=== PATIENT | female | born 1990 | race Caucasian/White ===

== ENCOUNTER 2016-08-14 02:54 | Emergency (ER) | payer SELFPAY ==
[~2016-08-14] VITALS: Ht 170.2 cm; Wt 71.3 kg
[~2016-08-14 02:54] MED LIST: SULF-154 PO
[2016-08-14 03:02] VITALS: BP 138/97; PULSE 108; RESP 16; TEMP 97.8; O2SAT 99
[2016-08-14] MEDS ORDERED: MULTTAB67 PO (03:27)
[2016-08-14] MEDS ORDERED: OXYC30TA62 PO (03:27)
[2016-08-14] MEDS ORDERED: CEPH-459 PO (03:27)
[2016-08-14 04:03] LABS: AUTOMATED NEUTROPHIL # 6.9 TH/MM3 (1.8-7.7); BASOPHIL % 0.4 % (0.0-2.0); EOSINOPHIL # 0.6 TH/MM3 (0-0.4); EOSINOPHIL % 6.4 % (0.0-4.0); HEMATOCRIT 39.5 % (35.0-46.0); LYMPH % 17.5 % (9.0-44.0); LYMPHOCYTE # 1.7 TH/MM3 (1.0-4.8); MEAN CELL VOLUME 92.9 FL (80.0-100.0); MEAN CORPUSCULAR HEMOGLOBIN 31.1 PG (27.0-34.0); MEAN CORPUSCULAR HGB CONC 33.5 % (32.0-36.0); MONO % 3.9 % (0.0-8.0); NEUT % 71.8 % (16.0-70.0); PLATELET COUNT 258 TH/MM3 (150-450); RED BLOOD COUNT 4.26 MIL/MM3 (4.00-5.30); RED CELL DISTRIBUTION WIDTH 12.6 % (11.6-17.2); WHITE BLOOD COUNT 9.6 TH/MM3 (4.0-11.0)
[2016-08-14 04:05] LABS: BLOOD, URINE NEG (NEG); GLUCOSE,URINE NEG (NEG); KETONE, URINE TRACE mg/dL (NEG); NITRITE,URINE NEG (NEG); PH, URINE 5.5 (5.0-8.5)
[2016-08-14 04:16] LABS: CHLORIDE 105 MEQ/L (98-107); SODIUM (NA) 140 MEQ/L (136-145)
[2016-08-14 04:19] LABS: ANION GAP 6 MEQ/L (5-15); BICARBONATE 29.5 MEQ/L (21.0-32.0); BLOOD UREA NITROGEN 11 MG/DL (7-18)
[2016-08-14 04:21] LABS: POTASSIUM 3.8 MEQ/L (3.5-5.1)
[2016-08-14 04:22] LABS: ALT (GPT) 65 U/L (10-53); AST (GOT) 60 U/L (15-37); GLOMERULAR FILTRATION RATE 85 ML/MIN (>89); HEMO FLAGS DIFF FINAL
[2016-08-14 04:23] LABS: AMPHETAMINE, URINE POS (NEG)
[2016-08-14 04:24] LABS: TOTAL BILIRUBIN ADULT 0.5 MG/DL (0.2-1.0)
[2016-08-14 04:25] LABS: ALKALINE PHOSPHATASE 74 U/L (45-117); BARBITURATES, URINE NEG (NEG)
[2016-08-14 04:26] LABS: MUCUS URINE MOD /lpf (OCC); URINE COLOR AMBER (YELLW/STRAW)
[2016-08-14 04:27] LABS: BACTERIA, URINE OCC /hpf
[2016-08-14 04:29] LABS: COMMENT (UR) CULT NOT INDICATED; CULTURE IF INDICATED CULT NOT INDICATED; URIC ACID CRYSTALS, URINE MANY /hpf
[2016-08-14 04:30] VITALS: BP 137/77; PULSE 92; RESP 17; O2SAT 97
[2016-08-14 04:30] LABS: COCAINE, URINE POS (NEG)
--- NOTE | 2016-08-14 04:53 | PD ---
HPI Chief Complaint: Edema Time Seen by Provider: 03:25 Travel History International Travel<30 days: No Contact w/Intl Traveler<30days: No Traveled to known affect area: No History of Present Illness HPI 26-year-old female presents to the emergency department for swelling of her feet for 2-3 days. Patient states she was seen at [facility] and told she was fine. Patient states. Edema has not resolved. Patient admits to being an IV drug user. Patient is very fearful of having some type of serious infection. Patient's had no fever no chills no nausea no vomiting no shortness of breath no sweats no orthopnea nor PND no chest pain no palpitations no generalized weakness no lymphadenopathy no sore throat no earache no vaginal discharge or vaginal bleeding. Last period was normal for her. Patient recently released from retirement June 24. Patient has been and chills since January 2016. Patient is on multiple antibiotics during her stay and gel for various skin infections. Patient has had no diarrhea. No report of hematemesis coffee-ground emesis melena hematochezia. No dysuria frequency urgency hematuria or flank pain. Patient rates pain in her feet 7/10 intensity. Patient denies . No prior history of pedal edema. PFSH Past Medical History Narrative Medical Arthritis IV drug abuse chronic back pain; positive tobacco use positive alcohol use positive substance use; no significant reviewed Medical History: Denies Significant Hx Hx Anticoagulant Therapy: No Arthritis: Yes Cardiovascular Problems: No Chemotherapy: No Cerebrovascular Accident: No Diabetes: No Diminished Hearing: No Musculoskeletal: Yes (CHRONIC BACK PAIN) Respiratory: No Tetanus Vaccination: < 5 Years Influenza Vaccination: No ?: Not LMP: 06/24/2016 Past Surgical History Surgical History: No Previous Surgery Hysterectomy: No Social History Alcohol Use: Yes (everyday "a couple beers") Tobacco Use: Yes (1 PPD) Substance Use: Yes (IV use 2 days ago, opiates, marijuana) Allergies-Medications (Allergen,Severity, Reaction): Coded Allergies: *MDRO Multi-Drug Resistant Organism (Verified Adverse Reaction, Unknown, ) MRSA shoulder wound 01/2015 Reported Meds & Prescriptions Reported Meds & Active Scripts Active Reported Oxycontin (Oxycodone HCl) 30 Mg Tab 30 Mg PO Q8HR Multiple Vitamin 1 Tab 1 Tab PO DAILY Keflex (Cephalexin) 250 Mg Cap Unknown Dose PO Q6H Review of Systems Except as stated in HPI: all other systems reviewed are Neg General / Constitutional: No: Fever, Chills HENT: No: Headaches, Sore Throat, Congestion, Neck Pain Cardiovascular: Positive: Edema (pedal), No: Chest Pain or Discomfort, Diaphoresis Respiratory: No: Cough, Shortness of Breath, Wheezing Gastrointestinal: No: Nausea, Vomiting, Diarrhea, Abdominal Pain Genitourinary: No: Dysuria, Flank Pain Musculoskeletal: Positive: Edema (bilateral feet), Pain (bilateral feet), No: Myalgias, Arthralgias, Cramping Skin: No Rash Neurologic: No: Weakness Psychiatric: No: Anxiety Hematologic/Lymphatic: No: Lymph Node Enlargement Physical Exam Narrative GENERAL: Well-developed well-nourished female in no acute distress no respiratory distress; GCS 15 SKIN: Warm and dry. Hyperpigmentation lesions of the lower extremities bilaterally and distribution of hair follicles no induration no pustules no vesicles no papules no petechia no purpura HEAD: Normocephalic. EYES: No scleral icterus. No injection or drainage. ENT: Mucous membranes moist airway is patent. NECK: Supple, trachea midline. No JVD or lymphadenopathy. No meningismus no nuchal rigidity. CARDIOVASCULAR: Regular rate and rhythm without murmurs, gallops, or rubs. RESPIRATORY: Breath sounds equal bilaterally. No accessory muscle use. GASTROINTESTINAL: Abdomen soft, non-tender, nondistended. MUSCULOSKELETAL: No cyanosis, bilateral nonpitting pedal edema. Radial and dorsalis pedis pulses 2+ to palpation BACK: Nontender without obvious deformity. No CVA tenderness. Data Data Last Documented VS Vital Signs Date Time Temp Pulse Resp B/P Pulse Ox O2 Delivery O2 Flow Rate FiO2 08/14/16 04:30 92 17 137/77 97 Room Air 08/14/16 03:02 97.8 Orders Complete Blood Count With Diff (08/14/16 03:25) Comprehensive Metabolic Panel (08/14/16 03:25) Ed Urine Pregnancytest Poc (08/14/16 03:25) Urinalysis - C+S If Indicated (08/14/16 03:25) Drug Screen, Random Urine (08/14/16 03:25) Labs Laboratory Tests Test 08/14/16 03:50 White Blood Count 9.6 TH/MM3 Red Blood Count 4.26 MIL/MM3 Hemoglobin 13.2 GM/DL Hematocrit 39.5 % Mean Corpuscular Volume 92.9 FL Mean Corpuscular Hemoglobin 31.1 PG Mean Corpuscular Hemoglobin 33.5 % Concent Red Cell Distribution Width 12.6 % Platelet Count 258 TH/MM3 Mean Platelet Volume 8.2 FL Neutrophils (%) (Auto) 71.8 % Lymphocytes (%) (Auto) 17.5 % Monocytes (%) (Auto) 3.9 % Eosinophils (%) (Auto) 6.4 % Basophils (%) (Auto) 0.4 % Neutrophils # (Auto) 6.9 TH/MM3 Lymphocytes # (Auto) 1.7 TH/MM3 Monocytes # (Auto) 0.4 TH/MM3 Eosinophils # (Auto) 0.6 TH/MM3 Basophils # (Auto) 0.0 TH/MM3 CBC Comment DIFF FINAL Differential Comment Urine Color FANY Urine Turbidity CLEAR Urine pH 5.5 Urine Specific Pandora GREATER THAN 1.035 Urine Protein 30 mg/dL Urine Glucose (UA) NEG mg/dL Urine Ketones TRACE mg/dL Urine Occult Blood NEG Urine Nitrite NEG Urine Bilirubin NEG Urine Leukocyte Esterase NEG Urine Squamous Epithelial 6-8 /hpf Cells Urine Uric Acid Crystals MANY /hpf Urine Bacteria OCC /hpf Urine Mucus MOD /lpf Microscopic Urinalysis Comment CULT NOT INDICATED Sodium Level 140 MEQ/L Potassium Level 3.8 MEQ/L Chloride Level 105 MEQ/L Carbon Dioxide Level 29.5 MEQ/L Anion Gap 6 MEQ/L Blood Urea Nitrogen 11 MG/DL Creatinine 0.80 MG/DL Estimat Glomerular Filtration 85 ML/MIN Rate Random Glucose 79 MG/DL Calcium Level 9.1 MG/DL Total Bilirubin 0.5 MG/DL Aspartate Amino Transf 60 U/L (AST/SGOT) Alanine Aminotransferase 65 U/L (ALT/SGPT) Alkaline Phosphatase 74 U/L Total Protein 8.4 GM/DL Albumin 3.4 GM/DL Urine Opiates Screen POS Urine Barbiturates Screen NEG Urine Amphetamines Screen POS Urine Benzodiazepines Screen NEG Urine Cocaine Screen POS Urine Cannabinoids Screen POS MDM Medical Decision Making Medical Screen Exam Complete: Yes Emergency Medical Condition: Yes Medical Record Reviewed: Yes Interpretation(s) Vital Signs Date Time Temp Pulse Resp B/P Pulse Ox O2 Delivery O2 Flow Rate FiO2 08/14/16 04:30 92 17 137/77 97 Room Air 08/14/16 03:10 18 98 Room Air 08/14/16 03:02 97.8 108 16 138/97 99 CBC & BMP Diagram 08/14/16 03:50 poc hcg: negative Urinalysis: Specific gravity greater than 1.035 many uric acid crystals 6-8 squamous epithelial cells few bacteria moderate mucus; culture not indicated Urine drug screen positive for opiates and amphetamines cocaine and cannabinoids Differential Diagnosis Pedal edema, dehydration, hypoproteinemia, renal failure, CHF, DVT, folliculitis , IV drug abuse Narrative Course IV access obtained specimens collected and sent for resulting; [id number] hCG negative Patient resting comfortably waiting lab results At 4:45 AM labs values are resulted and found to be grossly within normal range except for mild elevation of transaminases. Urinalysis remarkable for elevated specific gravity greater than 1.035 culture not indicated. Urine drug screen positive for multiple substances cocaine cannabinoids and amphetamines and opiates. Patient informed of her results and encouraged to discontinue substances as well lead to deterioration of condition. Patient given community resources for primary care provider. Sepsis Criteria SIRS Criteria (2 or more): Heart rate over 90 Diagnosis Primary Impression: Pedal edema Additional Impressions: Elevated transaminase level Dehydration Referrals: [facility] call for appointment Primary Care Physician call for appointment [facility] for appointment Patient Instructions: General Instructions Additional Instructions: Increase fluid hydration Elevate feet/lower extremity Return to the emergency department for any concerns or change in condition Discontinue substance use Follow-up with [facility] for substance use support/detox Follow-up with [facility] or primary care provider Do not use acetaminophen Med/Other Pt SpecificInfo: No Meds Exist/No RX given Disposition: 01 DISCHARGE HOME Condition: Stable Heaven Gudino MD August 14, 2016 04:53
== END 2016-08-14 05:05 | disposition home or self-care (01) ==
LOC: PHED 02:54
DX: R60.0 Localized edema (principal); R74.0 Nonspecific elevation of levels of transaminase and lactic acid dehydrogenase [LDH]; E86.0 Dehydration; F17.200 Nicotine dependence, unspecified, uncomplicated; Z79.899 Other long term (current) drug therapy
CPT/HCPCS: 80053; 80307; 81001; 84703; 85025; 99283

== ENCOUNTER 2016-09-04 20:20 | Emergency (ER) | payer SELFPAY ==
[~2016-09-04] VITALS: Ht 167.6 cm; Wt 64.0 kg
[~2016-09-04 20:20] MED LIST changes: +CEPH-459 PO; +MULTTAB67 PO; +OXYC30TA62 PO; -SULF-154 PO
[2016-09-04 20:22] VITALS: BP 127/92; PULSE 112; RESP 18; TEMP 98.7; O2SAT 100
== END 2016-09-04 22:00 | disposition left against medical advice (07) ==
LOC: NETRI 20:20
DX: M25.561 Pain in right knee (principal); Z53.21 Procedure and treatment not carried out due to patient leaving prior to being seen by health care provider
CPT/HCPCS: 99281

== ENCOUNTER 2016-09-06 13:47 | Emergency (ER) | payer SELFPAY ==
[~2016-09-06] VITALS: Ht 170.2 cm; Wt 63.0 kg
[2016-09-06 13:48] VITALS: BP 127/82; PULSE 104; RESP 20; TEMP 98.2; O2SAT 100
--- NOTE | 2016-09-06 15:51 | PD ---
HPI . right knee pain Chief Complaint: Pain: Acute or Chronic Time Seen by Provider: 15:45 Travel History International Travel<30 days: No Contact w/Intl Traveler<30days: No Traveled to known affect area: No History of Present Illness HPI 26-year-old female who was IV drug user here with complaints of right knee pain. Patient tells me that she has been having right knee pain for the past month worse over the past several days. She tells me that she went to several hospitals in the past and she was told that this is related to her having impetigo. Patient tells me that she has been having edema in her lower extremities for over one year and needs to be evaluated. He denies any recent injury to the right knee. She rates the pain as 8/10 without radiation elsewhere. She reports having uric acid crystals in her urine. She wants to be evaluated for gout. PFSH Past Medical History Hx Anticoagulant Therapy: No Arthritis: Yes Cardiovascular Problems: No Chemotherapy: No Cerebrovascular Accident: No Diabetes: No Diminished Hearing: No Medical other: Yes (IV DRUG USER) Musculoskeletal: Yes (CHRONIC BACK PAIN) Respiratory: No Tetanus Vaccination: > 5 Years Influenza Vaccination: No ?: Not LMP: 07/2016 Past Surgical History Surgical History: No Previous Surgery Hysterectomy: No Social History Alcohol Use: Yes (everyday "a couple beers") Tobacco Use: Yes (1 PPD) Substance Use: Yes (IV DRUG use today , opiates, marijuana) Allergies-Medications (Allergen,Severity, Reaction): Coded Allergies: *MDRO Multi-Drug Resistant Organism (Verified Adverse Reaction, Unknown, ) MRSA shoulder wound 01/2015 Reported Meds & Prescriptions Reported Meds & Active Scripts Active Ibuprofen 800 Mg Tab 800 Mg PO TID Reported Multiple Vitamin 1 Tab 1 Tab PO DAILY Review of Systems General / Constitutional: No: Fever Eyes: No: Visual changes HENT: No: Headaches Cardiovascular: No: Chest Pain or Discomfort Respiratory: No: Shortness of Breath Gastrointestinal: No: Abdominal Pain Genitourinary: No: Dysuria Musculoskeletal: Positive: Pain (right knee) Skin: No Rash Neurologic: No: Weakness Psychiatric: No: Depression Endocrine: No: Polydipsia Hematologic/Lymphatic: No: Easy Bruising Physical Exam Narrative GENERAL: AAO x 3, no acute distress, Well-nourished, well-developed patient. SKIN: Warm and dry. No visible rashes or bruising. HEAD: Normocephalic and atraumatic. EYES: No scleral icterus. No injection or drainage. ENT: No nasal drainage noted. Mucous membranes pink. Airway patent. NECK: Supple, trachea midline. No JVD. CARDIOVASCULAR: Regular rate and rhythm without murmurs, gallops, or rubs. RESPIRATORY: Breath sounds equal bilaterally. No accessory muscle use. No rhonchi or rales. GASTROINTESTINAL: Abdomen soft, non-tender, nondistended. EXTREMITIES: No cyanosis. Bilateral pedal edema nonpitting. Right knee without any overt abnormality. Flexion and extension of bilateral extremities are normal, but on the right elicits pain. No tenderness on palpation. Negative Luis and Thomas. BACK: Nontender without obvious deformity. NEURO: CN II-12 intact, filter cloth maker strength normal b/l, UE and LE 5/5, no focal deficits PSYCH: AAO x 3, normal affect. Data Data Last Documented VS Vital Signs Date Time Temp Pulse Resp B/P Pulse Ox O2 Delivery O2 Flow Rate FiO2 09/06/16 13:48 98.2 104 20 127/82 100 Room Air Orders Knee, Complete (4vws) (09/06/16 15:52) Ed Urine Pregnancytest Poc (09/06/16 15:52) Complete Blood Count With Diff (09/06/16 15:52) Basic Metabolic Panel (Bmp) (09/06/16 15:52) Uric Acid (09/06/16 15:58) Labs Laboratory Tests Test 09/06/16 16:00 White Blood Count 8.4 TH/MM3 Red Blood Count 4.70 MIL/MM3 Hemoglobin 14.7 GM/DL Hematocrit 42.8 % Mean Corpuscular Volume 90.9 FL Mean Corpuscular Hemoglobin 31.3 PG Mean Corpuscular Hemoglobin 34.4 % Concent Red Cell Distribution Width 12.7 % Platelet Count 245 TH/MM3 Mean Platelet Volume 9.3 FL Neutrophils (%) (Auto) 68.0 % Lymphocytes (%) (Auto) 19.8 % Monocytes (%) (Auto) 7.3 % Eosinophils (%) (Auto) 4.5 % Basophils (%) (Auto) 0.4 % Neutrophils # (Auto) 5.7 TH/MM3 Lymphocytes # (Auto) 1.7 TH/MM3 Monocytes # (Auto) 0.6 TH/MM3 Eosinophils # (Auto) 0.4 TH/MM3 Basophils # (Auto) 0.0 TH/MM3 CBC Comment DIFF FINAL Differential Comment Sodium Level 138 MEQ/L Potassium Level 4.0 MEQ/L Chloride Level 103 MEQ/L Carbon Dioxide Level 28.9 MEQ/L Anion Gap 6 MEQ/L Blood Urea Nitrogen 6 MG/DL Creatinine 0.65 MG/DL Estimat Glomerular Filtration 109 ML/MIN Rate Random Glucose 87 MG/DL Uric Acid 3.0 MG/DL Calcium Level 9.4 MG/DL MDM Medical Decision Making Medical Screen Exam Complete: Yes Emergency Medical Condition: Yes Medical Record Reviewed: Yes Differential Diagnosis Right knee pain, OA, RA, recent injury, less likely knee fracture, malingering, drug-seeking behavior Narrative Course 26-year-old female here with complaints of right knee pain. Examination was done and patient does have some pain with flexion and extension of the right knee. X-rays and labs have been ordered. Uric acid has also been ordered. Last Impressions Knee X-Ray 09/06/16 [id number] Signed Impressions: Service Date/Time: Tuesday, September 06, 2016 16:27 - CONCLUSION: Normal examination for a patient of this age. Yohannes Bradley MD Laboratory Tests Test 09/06/16 16:00 White Blood Count 8.4 TH/MM3 Red Blood Count 4.70 MIL/MM3 Hemoglobin 14.7 GM/DL Hematocrit 42.8 % Mean Corpuscular Volume 90.9 FL Mean Corpuscular Hemoglobin 31.3 PG Mean Corpuscular Hemoglobin 34.4 % Concent Red Cell Distribution Width 12.7 % Platelet Count 245 TH/MM3 Mean Platelet Volume 9.3 FL Neutrophils (%) (Auto) 68.0 % Lymphocytes (%) (Auto) 19.8 % Monocytes (%) (Auto) 7.3 % Eosinophils (%) (Auto) 4.5 % Basophils (%) (Auto) 0.4 % Neutrophils # (Auto) 5.7 TH/MM3 Lymphocytes # (Auto) 1.7 TH/MM3 Monocytes # (Auto) 0.6 TH/MM3 Eosinophils # (Auto) 0.4 TH/MM3 Basophils # (Auto) 0.0 TH/MM3 CBC Comment DIFF FINAL Differential Comment Sodium Level 138 MEQ/L Potassium Level 4.0 MEQ/L Chloride Level 103 MEQ/L Carbon Dioxide Level 28.9 MEQ/L Anion Gap 6 MEQ/L Blood Urea Nitrogen 6 MG/DL Creatinine 0.65 MG/DL Estimat Glomerular Filtration 109 ML/MIN Rate Random Glucose 87 MG/DL Uric Acid 3.0 MG/DL Calcium Level 9.4 MG/DL All results within normal limits. I discussed with patient and she seemed upset. I explained to her that I will just provide her with anti-inflammatories. Diagnosis Primary Impression: Right knee pain Qualified Code: M25.561 - Acute pain of right knee Patient Instructions: General Instructions Additional Instructions: Please return to emergency department if your symptoms return or worsen. Follow up with your primary care provider. Take medications as prescribed. Med/Other Pt SpecificInfo: Prescription(s) given Scripts Ibuprofen 800 Mg [id number] Mg PO TID #21 TAB Prov:Yon Barros MD 09/06/16 Disposition: 01 DISCHARGE HOME Condition: Stable Re [place] Sep 06, 2016 15:51 Condition: Stable Re [place] Sep 06, 2016 15:51
[2016-09-06 16:20] LABS: AUTOMATED NEUTROPHIL # 5.7 TH/MM3 (1.8-7.7); BASOPHIL % 0.4 % (0.0-2.0); EOSINOPHIL # 0.4 TH/MM3 (0-0.4); EOSINOPHIL % 4.5 % (0.0-4.0); HEMATOCRIT 42.8 % (35.0-46.0); HEMO FLAGS DIFF FINAL; LYMPH % 19.8 % (9.0-44.0); LYMPHOCYTE # 1.7 TH/MM3 (1.0-4.8); MEAN CELL VOLUME 90.9 FL (80.0-100.0); MEAN CORPUSCULAR HEMOGLOBIN 31.3 PG (27.0-34.0); MEAN CORPUSCULAR HGB CONC 34.4 % (32.0-36.0); MONO % 7.3 % (0.0-8.0); PLATELET COUNT 245 TH/MM3 (150-450); RED CELL DISTRIBUTION WIDTH 12.7 % (11.6-17.2); WHITE BLOOD COUNT 8.4 TH/MM3 (4.0-11.0)
[2016-09-06 16:41] LABS: BICARBONATE 28.9 MEQ/L (21.0-32.0)
--- NOTE | 2016-09-06 17:20 | RADRPT ---
EXAM DATE/TIME: 09/06/2016 16:27 [facility] COMPARISON: No previous studies available for comparison. INDICATIONS : Non-traumatic right knee pain since this morning MEDICAL HISTORY : None. SURGICAL HISTORY : None. ENCOUNTER: Initial ACUITY: 1 day PAIN SCORE: 8/10 LOCATION: Right knee FINDINGS: Four view examination of the right knee demonstrates no evidence of fracture or dislocation. Bony mi neralization is normal. The articular surfaces are intact. The suprapatellar soft tissues have a no rmal configuration. CONCLUSION: Normal examination for a patient of this age. Yohannes Bradley MD on September 06, 2016 at 17:18 Board Certified Radiologist. This report was verified electronically.
[2016-09-06 17:30] VITALS: BP 120/76; PULSE 108; RESP 20; TEMP 98.2; O2SAT 100
[2016-09-06] MEDS ORDERED: IBUP800T23 PO (17:49)
== END 2016-09-06 18:51 | disposition home or self-care (01) ==
LOC: NEPC 13:47
DX: M25.561 Pain in right knee (principal)
CPT/HCPCS: 73564; 80048; 84550; 85025; 99284

== ENCOUNTER 2017-03-09 18:01 | Emergency (ER) | payer SELFPAY ==
[~2017-03-09] VITALS: Ht 170.2 cm; Wt 59.0 kg
[~2017-03-09 18:01] MED LIST changes: -CEPH-459 PO; +IBUP1TAB7 PO; -OXYC30TA62 PO
[2017-03-09 18:03] VITALS: BP 134/74; PULSE 109; RESP 18; TEMP 99; O2SAT 96
[2017-03-09] MEDS ORDERED: DALBAVANCIN INJ 1,500 MG in DEXTROSE 5% IN WATE 500 ML INJ 500 ML IV STA ×2 (19:41)
[2017-03-09] MEDS ORDERED: ASP: Does not meet inpatient admission criteria OTHER ONE (19:45)
[2017-03-09] MEDS ORDERED: ASP: Only reason for admit - IV antibiotics OTHER ONE (19:45)
[2017-03-09] MEDS ORDERED: ASP: Location of Dalbavancin administration OTHER ONE (19:45)
[2017-03-09] MEDS ORDERED: ASP: No known hypersensitivity to Vanco, Telavancin, Dalbavancin OTHER ONE (19:45)
[2017-03-09] MEDS ORDERED: MISCELLANEOUS PHARMACY INFORMATION XX ONE (19:45)
[2017-03-09] MEDS ORDERED: ACETAMINOPHEN 1000 MG/100 ML 100 ML IV ONE (20:00)
[2017-03-09] MEDS ORDERED: KETOROLAC TROMETHAMINE 30 MG/ML (IVP) VIAL IV PUSH ONE (20:00)
[2017-03-09] MEDS ORDERED: LIDOCAINE HCL 1% 50 ML VIAL INFIL ONE (20:00)
[2017-03-09 20:27] LABS: AUTOMATED NEUTROPHIL # 6.3 TH/MM3 (1.8-7.7); BASOPHIL % 0.3 % (0.0-2.0); EOSINOPHIL # 0.6 TH/MM3 (0-0.4); HEMATOCRIT 35.2 % (35.0-46.0); HEMOGLOBIN 12.2 GM/DL (11.6-15.3); LYMPH % 22.2 % (9.0-44.0); LYMPHOCYTE # 2.1 TH/MM3 (1.0-4.8); MEAN CORPUSCULAR HGB CONC 34.8 % (32.0-36.0); MEAN PLATELET VOLUME 8.9 FL (7.0-11.0); MONO % 4.8 % (0.0-8.0); MONOCYTE # 0.5 TH/MM3 (0-0.9); NEUT % 66.7 % (16.0-70.0); PLATELET COUNT 270 TH/MM3 (150-450); RED BLOOD COUNT 3.95 MIL/MM3 (4.00-5.30); RED CELL DISTRIBUTION WIDTH 13.5 % (11.6-17.2); WHITE BLOOD COUNT 9.5 TH/MM3 (4.0-11.0)
[2017-03-09 20:41] LABS: ALBUMIN 3.1 GM/DL (3.4-5.0); AST (GOT) 62 U/L (15-37); BICARBONATE 30.5 MEQ/L (21.0-32.0); BLOOD UREA NITROGEN 8 MG/DL (7-18); CALCIUM 8.6 MG/DL (8.5-10.1); CHLORIDE 101 MEQ/L (98-107); CREATININE 0.75 MG/DL (0.50-1.00); GLOMERULAR FILTRATION RATE 92 ML/MIN (>89); GLUCOSE,RANDOM 69 MG/DL (74-106); SODIUM (NA) 135 MEQ/L (136-145)
[2017-03-09 20:42] LABS: ALT (GPT) 57 U/L (10-53)
[2017-03-09 20:44] LABS: ALKALINE PHOSPHATASE 101 U/L (45-117); TOTAL BILIRUBIN ADULT 0.4 MG/DL (0.2-1.0); TOTAL PROTEIN 8.9 GM/DL (6.4-8.2)
--- NOTE | 2017-03-09 20:52 | PD ---
HPI Chief Complaint: Skin Problem Time Seen by Provider: 19:14 Travel History International Travel<30 days: No Contact w/Intl Traveler<30days: No Traveled to known affect area: No History of Present Illness HPI To 26 year-old woman with a history of IV drug use presents to the emergency department with painful swelling of her left arm. Swelling is full: And fluctuant area in the upper inner brachium. She states she does inject IV drugs in this area. She has also had several other areas of small "boils" but did not progress at this level. No definite fevers. States she has had some chills recently. No history of endocarditis or other significant infectious complications from IV drug use. No other medical history. History Past Medical History Narrative Medical Active IV drug use LMP: 02/09/17 Social History Alcohol Use: Yes (everyday "a couple beers") Tobacco Use: Yes (1 PPD) Allergies-Medications (Allergen,Severity, Reaction): Coded Allergies: *MDRO Multi-Drug Resistant Organism (Verified Adverse Reaction, Unknown, 03/09/17) MRSA shoulder wound 01/2015 Reported Meds & Prescriptions Reported Meds & Active Scripts Active Review of Systems Except as stated in HPI: all other systems reviewed are Neg Physical Exam Narrative GENERAL: 26 year-old woman, generally well-appearing. SKIN: Focused skin assessment warm/dry. Multiple areas of track mccartney on both arms, upper and lower, as well as in the legs. HEAD: Atraumatic. Normocephalic. EYES: Pupils equal and round. No scleral icterus. No injection or drainage. ENT: No nasal bleeding or discharge. Mucous membranes pink and moist. NECK: Trachea midline. No JVD. CARDIOVASCULAR: Regular rate and rhythm. No murmur appreciated. RESPIRATORY: No accessory muscle use. Clear to auscultation. Breath sounds equal bilaterally. GASTROINTESTINAL: Abdomen soft, non-tender, nondistended. Hepatic and splenic margins not palpable. MUSCULOSKELETAL: No obvious deformities. She's got erythema and redness spreading in the upper arm especially centered on the area of fluctuance about 2 -3 cm in diameter, the upper inner brachium. Patchy blanching erythema surrounding this. Good pulses distally. A little bit of edema throughout the upper arm. NEUROLOGICAL: Awake and alert. No obvious cranial nerve deficits. Motor grossly within normal limits. Normal speech. PSYCHIATRIC: Appropriate mood and affect; insight and judgment normal. Data Data Last Documented VS Vital Signs Date Time Temp Pulse Resp B/P (MAP) Pulse Ox O2 Delivery O2 Flow Rate FiO2 03/09/17 18:03 99.0 109 18 134/74 (94) 96 Orders Orders Complete Blood Count With Diff (03/09/17 19:41) Comprehensive Metabolic Panel (03/09/17 19:41) Blood Culture (03/09/17 19:41) Case Management Consult (03/09/17 ) Asp:No Reaction To [place]/Vanc (Asp Crit (03/09/17 19:45) Asp: Does Not Meet Inpt Admit (Asp Crit: (03/09/17 19:45) Asp: Iv Antibiotics Admit Only (Asp Crit (03/09/17 19:45) Asp: Location Of [place] Admin (Asp Crit: (03/09/17 19:45) [facility] Information ([facility] (03/09/17 19:45) [place]ancin Inj (Dalvance Inj) (03/09/17 19:41) Elevate (03/09/17 19:41) Measurements (03/09/17 19:41) Lidocaine 1% Inj (50 Ml) (Xylocaine 1% I (03/09/17 20:00) Ketorolac Inj (Toradol Inj) (03/09/17 20:00) Acetaminophen 1000 Mg/100 Ml (Ofirmev 10 (03/09/17 20:00) Labs Laboratory Tests Test 03/09/17 19:58 White Blood Count 9.5 TH/MM3 Red Blood Count 3.95 MIL/MM3 Hemoglobin 12.2 GM/DL Hematocrit 35.2 % Mean Corpuscular Volume 89.0 FL Mean Corpuscular Hemoglobin 31.0 PG Mean Corpuscular Hemoglobin Concent 34.8 % Red Cell Distribution Width 13.5 % Platelet Count 270 TH/MM3 Mean Platelet Volume 8.9 FL Neutrophils (%) (Auto) 66.7 % Lymphocytes (%) (Auto) 22.2 % Monocytes (%) (Auto) 4.8 % Eosinophils (%) (Auto) 6.0 % Basophils (%) (Auto) 0.3 % Neutrophils # (Auto) 6.3 TH/MM3 Lymphocytes # (Auto) 2.1 TH/MM3 Monocytes # (Auto) 0.5 TH/MM3 Eosinophils # (Auto) 0.6 TH/MM3 Basophils # (Auto) 0.0 TH/MM3 CBC Comment DIFF FINAL Differential Comment Blood Urea Nitrogen 8 MG/DL Creatinine 0.75 MG/DL Random Glucose 69 MG/DL Total Protein 8.9 GM/DL Albumin 3.1 GM/DL Calcium Level 8.6 MG/DL Alkaline Phosphatase 101 U/L Aspartate Amino Transf (AST/SGOT) 62 U/L Alanine Aminotransferase (ALT/SGPT) 57 U/L Total Bilirubin 0.4 MG/DL Sodium Level 135 MEQ/L Potassium Level 3.3 MEQ/L Chloride Level 101 MEQ/L Carbon Dioxide Level 30.5 MEQ/L Anion Gap 4 MEQ/L Estimat Glomerular Filtration Rate 92 ML/MIN [facility] Medical Decision Making Medical Screen Exam Complete: Yes Emergency Medical Condition: Yes Interpretation(s) LABS: CBC with white count 9.5 CMP reveals a wide "Gamma gap", nonspecific. Differential Diagnosis Cellulitis, abscess, IV drug use, endocarditis, other Narrative Course Medical decision-making 18 year-old woman with left upper extremity abscess, with some surrounding erythema redness and edema. She injects in this area and is likely the cause of her symptoms. Is good pulses. Abscess was drained at the bedside. She'll be given doubt [place]. [48 hours for recheck. Will send blood cultures. Diagnosis Primary Impression: Abscess of left arm Additional Impression: Cellulitis of left upper arm Additional Instructions: Return to the emergency department 48 hours for wound check and packing change. Wear Ever wrap for compression and comfort. Elevate arm above your heart as directed. Return to the emergency department for any worsening pain, swelling, fevers, or any other new or worsening symptoms. Use [id number] Aleve as needed for pain. Avoid IV drug use. Med/Other Pt SpecificInfo: No Change to Meds Disposition: 01 DISCHARGE HOME Condition: Stable Beto Puckett MD Mar 09, 2017 20:51
[2017-03-09 21:01] VITALS: RESP 18
== END 2017-03-09 23:35 | disposition home or self-care (01) ==
LOC: NEPE 18:01
DX: L02.414 Cutaneous abscess of left upper limb (principal); L03.114 Cellulitis of left upper limb; F17.200 Nicotine dependence, unspecified, uncomplicated
CPT/HCPCS: 10060; 80053; 85025; 87040; 96365; 96366; 96368; 96375; 99284; J0131; J0875; J1885; J7060